=== PATIENT | female | born 1985 | race Caucasian/White ===

== ENCOUNTER 2025-02-08 19:27 | Emergency (ER) | payer SELFPAY ==
[2025-02-08 19:31] VITALS: BP 143/105
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
== END 2025-02-08 22:14 | disposition home or self-care (01) ==
LOC: EMR 19:27
PROVIDERS: EMERGENCY PHYSICIAN Student in an Organized Health Care Education/Training Program
DX: F32.A Depression, unspecified (principal); F41.9 Anxiety disorder, unspecified; F11.20 Opioid dependence, uncomplicated; F17.200 Nicotine dependence, unspecified, uncomplicated; Z63.0 Problems in relationship with spouse or partner; Z86.711 Personal history of pulmonary embolism
CPT/HCPCS: 99283; 93005

== ENCOUNTER 2025-02-18 09:14 | Emergency (ER) | payer SELFPAY ==
[2025-02-18 09:24] VITALS: BP 147/82
[2025-02-18 09:26] VITALS: BP 147/82
[2025-02-18 10:00] VITALS: BP 135/64
--- NOTE | 2025-02-18 10:45 | ED.GENMED ---
History of Present Illness
General
Chief Complaint: Abdominal Symptoms
Source: patient
Exam Limitations: none
Time Seen by Provider: 02/18/25 10:06
Nursing documentation reviewed up to this point in time: agreed with
History of Present Illness
History of Present Illness:
39 yr old female with substance abuse on methadone, anxiety presents to the ED for evaluation. Patient was found in the shower during my assessment stating that this is the only thing that helps her symptoms. She complains of of nausea and
vomiting that started this morning. Has a history of cyclical vomiting syndrome. She last used marijuana 1 week ago.
No other complaints
Past History
Past History
ED Past Medical History: Psychiatric (Bipolar, Anxiety) and Other (, On Methadone for Oxycontin abuse, PE); Negative Asthma, HTN, Hypercholesterolemia or NIDDM
ED Past Surgical History: Other ( malick removed from posterior scalp)
Social History
Tobacco: Smoker
Alcohol: None
Drug: Narcotics
Personal:
Living: with family
Phy Exam
General Physical Exam
General Presentation: no apparent distress
General age: appears stated age
General Skin: warm and dry
General Habitus: normal
General Mental: alert
General Hydration: dry mucous membranes
Neurological Exam
Neurological Exam: alert
Musculoskeletal Exam
Musculoskeletal Exam: full ROM
Skin Exam
Skin Exam: normal color and warm/dry
Psychiatric Exam
Psychiatric Exam: normal mood/affect
Course
Orders/Labs/Results
Orders:
Orders
02/18/25 10:53
IV Insert/Care/Rem.- Treatment PRN
0.9% Sodium Chloride 1000 ml [Nss] 1,000 ml IV BOLUS
Ondansetron Injectable [Zofran] 4 mg IV NOW STA
02/18/25 10:54
Test Result ONCE
02/18/25 11:00
Complete Blood Count/With Diff Urgent
Comprehensive Metabolic Panel Urgent
HCG, Serum Qualitative Screen Urgent
Lipase Urgent
02/18/25 11:23
Electrocardiogram (*1) Stat
Reason for Study: Other
Other Reason for Exam: chest pain
Cardiac Monitoring- Treatment ONCE
EKG- Treatment ONCE
02/18/25 11:24
Haloperidol Lactate [Haldol] 1 mg IV NOW STA
02/18/25 11:44
Electrocardiogram (*1) Urgent
Reason for Study: QTc Monitoring
EKG- Treatment ONCE
Abnormal Lab Results
02/18/25
11:00
RBC 3.94 L 10^6/uL
(4.20-5.40)
Hgb 11.2 L g/dL
(12.0-16.0)
Hct 33.2 L %
(37.0-47.0)
MPV 11.3 H fL
(7.4-10.4)
Absolute Neuts (auto) 9.1 H 10^3/uL
(1.4-6.5)
Absolute Lymphs (auto) 0.6 L 10^3/uL
(1.2-3.4)
Neutrophils % 89.7 H %
(42.2-75.2)
Lymphocytes % 5.7 L %
(20.5-51.1)
Potassium 3.4 L mmol/L
(3.5-5.1)
Chloride 108 H mmol/L
(98-107)
Carbon Dioxide 21 L mmol/L
(22-30)
Glucose 128 H mg/dl
(70-99)
Albumin 5.1 H g/dl
(3.5-5.0)
02/18/25 11:00
02/18/25 11:00
Vital Signs
Initial and Last Documented VS:
Initial Vital Signs
Temp Pulse Resp BP Pulse Ox
98.4 F 68 18 147/82 100
02/18/25 09:24 02/18/25 09:24 02/18/25 09:24 02/18/25 09:24 02/18/25 09:24
Last Documented Vital Signs
Temp Pulse Resp BP Pulse Ox
98.4 F 61 13 132/88 100
02/18/25 09:26 02/18/25 12:57 02/18/25 12:57 02/18/25 12:00 02/18/25 11:51
MDM/Problems Addressed
Differential Diagnosis Includes:
Not limited to hyperemesis cannabinoids syndrome dehydration, electrolyte abnormality
MDM/Problems Addressed:
Symptoms are consistent with hyperemesis cannabinoid. Patient last smoked 1 week ago. Patient reports she has relief only with hot showers in fact upon evaluation patient was found in the shower in the ER treatment area. Patient received Zofran
which did not help along with Toradol. Patient requested to go home reports she is feeling better she was educated on marijuana cessation
*Pulse Oximetry
SaO2: 98
Oxygen Mode of Delivery: Room air
Patient hypoxic: no
*Critical Care Note
Total Time (30-74mins, 75-104mins- exclusive of procedures): Not Applicable
ED Attending Note
-
Portions of this chart may have been created with voice recognition software.� Occasional wrong word or��sound alike� substitutions may have occurred due to the inherent limitations of voice recognition software.
Discharge Plan
Departure
Patient Disposition: Home (Routine Discharge)
Date of Disposition: 02/18/25
Time of Disposition: 13:06
Patient with high blood pressure during this ER visit?: Yes
Condition: Fair
Covid-19: Not Applicable
Discharge Problem:
Cannabis abuse, uncomplicated, Cannabinoid hyperemesis syndrome
Instructions: Cannabis hyperemesis syndrome, BLOOD PRESSURE
Prescriptions:
No Action
sertraline 50 mg Tablet
50 mg PO DAILY
clonazepam [Klonopin] 0.5 mg Tablet
0.5 mg PO DAILY
methadone 5 mg Tablet
130 mg PO DAILY
Rx Instructions:
130mg daily taking in morning & 85mg daily taking in evening
methadone 5 mg/0.5 mL Syringe
85 mg PO DAILY
Rx Instructions:
130mg daily taking in morning & 85mg daily taking in evening
acetaminophen 325 mg Tablet
650 mg PO Q4HPRN PRN (Reason: mild pain) Qty: 0 0RF
labetalol 200 mg Tablet
200 mg PO BID Qty: 60 0RF
ibuprofen 600 mg Tablet
600 mg PO Q6HPRN PRN (Reason: moderate pain/cramps) Qty: 0 0RF
enoxaparin 40 mg/0.4 mL Syringe
40 mg SC DAILY 42 Days Qty: 42 0RF
Referrals:
NONE,* [Family Provider, Internal Medicine]
Activity Restrictions/Additional Instructions:
Your symptoms today are consistent with cannabinoid hyperemesis syndrome stop smoking marijuana. Follow-up with your family doctor in the next several days.
return if any worsening of symptoms
Interventions
Interventions:
*Risk Screen - Suicide Last Done: 02/18/25 09:26
*General Assessment Last Done: 02/18/25 12:00
*Neglect/Abuse Screening Last Done: 02/18/25 09:26
*ED COVID-19 Vaccine History Last Done: 02/18/25 12:00
*ED Influenza Vaccine History Last Done: 02/18/25 12:00
*Nursing Disposition Last Done: 02/18/25 13:40
[facility] Assessment Last Done: 02/18/25 12:00
Discharge Date and Time
Discharge Date/Time: 02/18/25 13:40
Print Language: ITALIAN
[2025-02-18] MEDS: NSS 1000 IV (11:01)
[2025-02-18] MEDS: ZOFRAN 4 MG IV (11:01)
[2025-02-18 11:10] LABS: Hematocrit 33.2 % (37.0-47.0); Hemoglobin 11.2 g/dL (12.0-16.0); Mean Corp Hgb Conc. 33.7 g/dL (33.0-37.0); Mean Corpuscular Volume 84.3 fL (81.0-99.0); Nucleated Red Blood Cells % 0 %; Platelet Count 199 10^3/uL (130-400); Red Cell Dist. Width 14.1 % (11.5-14.5)
[2025-02-18 11:20] LABS: HCG, Serum Qualitative Screen Negative
[2025-02-18 11:29] LABS: ALT (SGPT) 15 U/L (0-35); AST (SGOT) 21 U/L (14-36); Albumin 5.1 g/dl (3.5-5.0); Alkaline Phosphatase 45 U/L (38-126); Blood Urea Nitrogen 10 mg/dl (7-17); Calcium 9.9 mg/dl (8.4-10.2); Carbon Dioxide 21 mmol/L (22-30); Chloride 108 mmol/L (98-107); Glucose 128 mg/dl (70-99); Lipase 71 U/L (23-300); Potassium 3.4 mmol/L (3.5-5.1); Sodium 138 mmol/L (135-145); Total Protein 8.1 g/dl (6.3-8.2); eGFR > 60.00
[2025-02-18] MEDS: HALDOL 1 MG IV (11:42)
[2025-02-18 12:00] VITALS: BP 132/88
== END 2025-02-18 13:40 | disposition home or self-care (01) ==
LOC: EMR 09:14
PROVIDERS: Nurse Practitioner; EMERGENCY PHYSICIAN Emergency Medicine
DX: F12.10 Cannabis abuse, uncomplicated (principal); R11.2 Nausea with vomiting, unspecified; F41.9 Anxiety disorder, unspecified; F17.200 Nicotine dependence, unspecified, uncomplicated; F31.9 Bipolar disorder, unspecified; I10 Essential (primary) hypertension
CPT/HCPCS: 80053; 83690; 84703; 85025; 93005; 96361; 96374; 96375; 99283